=== PATIENT | female | born 1980 | race African-American/Black ===

== ENCOUNTER 2017-02-17 09:39 | Emergency (ER) | payer SELFPAY ==
--- NOTE | 2017-02-17 11:16 | ER Document Report ---
ED Neck/Back Problem - General Chief Complaint: Back Pain Stated Complaint: RIGHT ARM PAIN Time Seen by Provider: 02/17/17 10:12 Mode of Arrival: Ambulatory Information source: Patient Notes: 36-year-old female presents to ED for complaint of right arm pain. She states that 3 days ago the pain started in her right upper arm that it went to her elbow like there was a rubber band in her elbow. And then she had numbness and tingling in her arm. She also complains of low back pain but she states she has chronic low back pain and upper back pain. She also states that her left lateral leg has been hurting since last night. She is also complaining of a yeast rash under her breast with some yeasty smell and her vagina. She states she cannot go to her primary doctor because she does not have insurance and cannot afford an appointment. TRAVEL OUTSIDE OF THE [place] IN LAST 30 DAYS: No - HPI Patient complains to provider of: Pain, Upper back - Right arm and left leg, Lower back. No: Injury Onset: Other - Pain in right arm started 3 days ago pain in left leg started yesterday Onset: Chronic Timing: Still present Quality of pain: Achy, Burning, Throbbing Severity: Moderate Pain Level: 4 Recent injury: No Associated symptoms: Like prior neck/back pain, Numbness/tingling - Right hand, Radiation to arm, Radiation to leg, Lower back pain, Upper back pain. denies: Chills, Constipation, Fever, Incontinence, Motor loss, Sensory loss, Sweaty, Unable to urinate Exacerbated by: Nothing Relieved by: Nothing Similar symptoms previously: Yes Recently seen / treated by doctor: No - Related Data Allergies/Adverse Reactions: amoxicillin [Amoxicillin] Allergy (Verified 02/17/17 09:48) ivory soap Allergy (Severe, Uncoded 02/17/17 09:48) Past Medical History - General Information source: Patient - Social History Smoking Status: Never Smoker Chew tobacco use (# tins/day): No Frequency of alcohol use: None Drug Abuse: None Occupation: None Lives with: Family Family History: Reviewed & Not Pertinent Patient has suicidal ideation: No Patient has homicidal ideation: No - Past Medical History Cardiac Medical History: Reports: Hx Hypertension Pulmonary Medical History: Reports: Hx Asthma, Hx Bronchitis, Hx Pneumonia - hx EENT Medical History: Reports: None Neurological Medical History: Reports: None Endocrine Medical History: Reports: Hx Diabetes Mellitus Type 2 Renal/ Medical History: Reports: None Malignancy Medical History: Reports: None GI Medical History: Reports: Hx Gastroesophageal Reflux Disease Musculoskeltal Medical History: Reports Hx Arthritis, Reports Hx Musculoskeletal Deformity - Chronic back and neck pain, Reports Hx Musculoskeletal Trauma Skin Medical History: Reports None Psychiatric Medical History: Reports: Hx Anxiety Traumatic Medical History: Reports: None Infectious Medical History: Reports: None Past Surgical History: Reports: Hx Section - 2004 & 2009, Hx Genitourinary Surgery - D&C. Denies: Hx Hysterectomy - Immunizations Immunizations up to date: Yes Hx Diphtheria, Pertussis, Tetanus Vaccination: Yes Hx Pneumococcal Vaccination: 07/15/10 Review of Systems - Review of Systems Constitutional: No symptoms reported EENT: No symptoms reported Cardiovascular: No symptoms reported Respiratory: No symptoms reported Gastrointestinal: No symptoms reported Genitourinary: No symptoms reported Female Genitourinary: No symptoms reported Musculoskeletal: Back pain, Muscle pain, Other - Pain down left lower leg with no new injury and down right arm elbow and lower arm with no new injury patient has chronic back and neck pain. Skin: No symptoms reported Hematologic/Lymphatic: No symptoms reported Neurological/Psychological: No symptoms reported -: Yes All other systems reviewed and negative Physical Exam - Vital signs Vitals: Temp Pulse Resp BP Pulse Ox 98.7 F 90 18 148/83 H 96 02/17/17 09:45 02/17/17 09:45 02/17/17 09:45 02/17/17 09:45 02/17/17 09:45 Interpretation: Normal - General General appearance: Appears well, Alert - HEENT Head: Normocephalic, Atraumatic Eyes: Normal Pupils: PERRL - Respiratory Respiratory status: No respiratory distress Chest status: Nontender Breath sounds: Normal Chest palpation: Normal - Cardiovascular Rhythm: Regular Heart sounds: Normal auscultation Murmur: No - Abdominal Inspection: Normal Distension: No distension Bowel sounds: Normal Tenderness: Nontender Organomegaly: No organomegaly - Genitourinary External exam: Other - Vaginal type irritation to the labia - Back Back: Normal, Nontender - Extremities General upper extremity: Normal inspection, Nontender, Normal color, Normal ROM , Normal temperature General lower extremity: Normal inspection, Nontender, Normal color, Normal ROM , Normal temperature, Normal weight bearing. No: Clarissa's sign - Neurological Neuro grossly intact: Yes Cognition: Normal Orientation: AAOx4 Ant Coma Scale Eye Opening: Spontaneous Ant Coma Scale Verbal: Oriented Ant Coma Scale Motor: Obeys Commands Ant Coma Scale Total: 15 Speech: Normal Motor strength normal: LUE, RUE, LLE, RLE Sensory: Normal - Psychological Associated symptoms: Normal affect, Normal mood - Skin Skin Temperature: Warm Skin Moisture: Dry Skin Color: Normal Location of irregularity: Other - Erythema and irritation to the labia and under the breast Irregularity with: Tenderness Course - Re-evaluation Re-evalutation: 02/17/17 11:18 Patient instructed to follow-up primary doctor for her chronic pain to her back with radiation down the right arm and left leg. She was treated with nystatin powder for her yeasty type rash to under her breast and her perineum area. Patient was instructed to clean well with these areas rinsed well and pat dry before putting the powder on. Patient was also instructed to use some kind of cloth barrier between the layers of skin to reduce the irritation from skin touch and skin. Patient was given a sling for her right arm discomfort until she can follow-up with her primary doctor. - Vital Signs Vital signs: Temp Pulse Resp BP Pulse Ox 98.6 F 87 16 147/81 H 95 02/17/17 11:40 02/17/17 11:40 02/17/17 11:40 02/17/17 11:40 02/17/17 11:40 Discharge - Discharge Clinical Impression: Chronic upper back pain with radiculopat, Lower back pain radiation down left leg, Yeast infection under breast, Vaginal yeast infection Condition: Stable Disposition: HOME, SELF-CARE Instructions: Radiculopathy ([facility]), Topical Antifungal ([facility]) Additional Instructions: Chronic Back Pain Chronic back pain (pain persisting longer than three months) is a common problem. A medical evaluation can look for herniated disc, arthritis, osteoporosis, tumors, and infections. But at least half the time, there's no obvious treatable cause. Anxiety and depression tend to worsen back pain. Ibuprofen or other anti-inflammatory medicine can help. A heating pad, used for 15-20 minutes at a time, can ease pain. For this type of back pain, narcotic medicines should be avoided. Muscle relaxers are rarely helpful unless you're having spasms. Activity is important. Find an aerobic exercise program that your back can tolerate. Too much rest makes back pain worse. Specific back exercises are usually prescribed to strengthen the back and abdominal muscles. Often, a physical therapist can help. Avoid heavy lifting, working while bent over, or standing with both knees straight. Most back pain patients do better with a firm mattress. If new symptoms of a "herniated disc" (radiation of pain, numbness, or tingling down the back of the leg or weakness in the leg) occur, you should be re-examined. VAGINITIS: Your exam shows that you have vaginitis, a vaginal infection. The infection can be caused by a many different organisms, including trichomonas or Gardnerella. The usual symptoms are vaginal irritation and discharge. The treatment is usually antibiotics such as Flagyl. Laboratory tests can determine which germ is responsible. Use the medication as prescribed. Because this infection can be transmitted sexually, your sexual partner may need to be checked and treated also. If your physician has not discussed this with you, please check before resuming sexual relations. If a culture shows gonorrhea or chlamydia, the infection must be reported to the health department. Call the doctor if you develop pelvic pain, fever, or problems with urination, or if you don't improve as expected. VAGINAL YEAST INFECTION: You have evidence of a yeast infection -- called "sebastián." A vaginal yeast infection often causes itching and discharge. While not dangerous, it can be very unpleasant. A yeast infection often follows the use of powerful antibiotics. It is more likely to occur in diabetics. The treatment now is usually a single pill of Diflucan, but also an antifungal cream or suppository may be used for a few days. You do not need to avoid sexual intercourse. Recurrences are common. You can make a recurrence less likely by wearing cotton underwear and avoiding tight clothing. For mild recurrences, you can try [id number] creams or suppositories that are made specifically for yeast. If the symptoms do not resolve, you should follow up for re-examination. Sometimes treatment of the sexual partner is necessary if infections are recurrent. FLUCONAZOLE: Fluconazole (Diflucan) is an antifungal drug. It is useful for serious fungal infections, but is also excellent for oral or vaginal yeast infections. Diflucan interacts with some medicines. This is a concern if you are taking anticoagulants (such as Coumadin), phenytoin (Dilantin), cyclosporin, or oral hypoglycemics (such as tolbutamide, Orinase, glipizide, Glucotrol, glyburide, DiaBeta, Glynase, and Micronase). Be sure the doctor knows if you are taking one of these medicines. We don't know how Diflucan affects . If you are planning to become , discuss this with your doctor. Diflucan has few side effects. Minor side effects may include nausea, headache, or diarrhea. Call the doctor if you develop a skin rash, shortness of breath, or other new symptoms. FOLLOW-UP CARE: If you have been referred to a physician for follow-up care, call the physician s office for an appointment as you were instructed or within the next two days. If you experience worsening or a significant change in your symptoms, notify the physician immediately or return to the Emergency Department at any time for re-evaluation. Prescriptions: Nystatin [Nyata] 15 gm TP TID #30 powder Forms: Elevated Blood Pressure Referrals: ANDREA ORTEGA MD [Primary Care Provider] - Follow up as needed [facility] [Provider Group] - Follow up as needed
[2017-02-17] MEDS ORDERED: NYSTATIN TOPICAL POWDER 15 GM TP SCH ×2 (11:20→18:00)
[2017-02-17 11:55] VITALS: BP 147/81
[2017-02-17] MEDS ORDERED: NYSTATIN TOPICAL POWDER 15 GM TP ONE (12:00)
== END 2017-02-17 11:45 | disposition home or self-care (01) ==
LOC: ER 09:39
DX: B37.2 Candidiasis of skin and nail (principal); B37.3 Candidiasis of vulva and vagina; M54.5 Low back pain; M54.9 Dorsalgia, unspecified; M79.601 Pain in right arm; M54.6 Pain in thoracic spine; M54.14 Radiculopathy, thoracic region; M79.605 Pain in left leg; G89.29 Other chronic pain
CPT/HCPCS: 99283; J3490

== ENCOUNTER 2017-04-02 22:34 | Emergency (ER) | payer SELFPAY ==
[2017-04-02 23:05] VITALS: BP 155/103
[2017-04-03] MEDS ORDERED: DEXAMETHASONE SOD PHOS INJ 10 MG/1 ML VIAL IM ONE (00:56)
[2017-04-03] MEDS ORDERED: AZITHROMYCIN 250 MG TABLET PO ONE (00:56)
--- NOTE | 2017-04-03 01:02 | ER Document Report ---
HPI - HPI Patient complains to provider of: Sore throat, congestion, cough, neck pain Pain Level: 5 Context: Patient is a 36-year-old female comes emergency department for chief complaint of throat pain and pain in her neck, she states 1 week ago she started having congestion and cough, this mostly resolved but now her throat hurts in the front of her neck hurts as well. She also reports a lot of ear pain, worse on the right side. She denies fever, shortness of breath, headache. She takes no daily medications. She denies smoking. LMP within the past month. - REPRODUCTIVE Reproductive: REPORTS: : - DERM Skin Color: Normal Past Medical History - General Information source: Patient - Social History Smoking Status: Never Smoker Frequency of alcohol use: None Drug Abuse: None Lives with: Family Family History: Reviewed & Not Pertinent Patient has suicidal ideation: No Patient has homicidal ideation: No - Past Medical History Cardiac Medical History: Reports: Hx Hypertension Denies: Hx Coronary Artery Disease, Hx Heart Attack Pulmonary Medical History: Reports: Hx Asthma, Hx Bronchitis, Hx Pneumonia - hx Denies: Hx COPD Neurological Medical History: Denies: Hx Cerebrovascular Accident, Hx Seizures Endocrine Medical History: Reports: Hx Diabetes Mellitus Type 2 Renal/ Medical History: Denies: Hx Peritoneal Dialysis GI Medical History: Reports: Hx Gastroesophageal Reflux Disease Musculoskeltal Medical History: Reports Hx Arthritis, Reports Hx Musculoskeletal Deformity - Chronic back and neck pain, Reports Hx Musculoskeletal Trauma Psychiatric Medical History: Reports: Hx Anxiety Past Surgical History: Reports: Hx Section - 2004 & 2009, Hx Genitourinary Surgery - D&C. Denies: Hx Hysterectomy - Immunizations Immunizations up to date: Yes Hx Diphtheria, Pertussis, Tetanus Vaccination: Yes Hx Pneumococcal Vaccination: 07/15/10 Vertical Provider Document - CONSTITUTIONAL General Appearance: WD/WN, No Apparent Distress - INFECTION CONTROL TRAVEL OUTSIDE OF THE [place] IN LAST 30 DAYS: No - HEENT HEENT: negative: Normal ENT Exam - Right-sided otitis media with erythema and loss of landmarks, left your examination unremarkable, mild erythema of the throat, mild anterior cervical adenopathy bilaterally, complaints with palpation over frontal sinuses, nasal congestion noted. - NECK Neck: Lymphadenopathy-Left, Lymphadenopathy-Right - RESPIRATORY Respiratory: Breath Sounds Normal, No Respiratory Distress O2 Sat by Pulse Oximetry: 93 - CARDIOVASCULAR Cardiovascular: Regular Rate, Regular Rhythm - GI/ABDOMEN Gastrointestinal: Abdomen Soft, Abdomen Non-Tender - BACK Back: Normal Inspection - MUSCULOSKELETAL/EXTREMETIES Musculoskeletal/Extremeties: MAEW, FROM, Non-Tender - NEURO Level of Consciousness: Awake, Alert, Appropriate - DERM Integumentary: Warm, Dry, No Rash Course - Vital Signs Vital signs: Temp Pulse Resp BP Pulse Ox 97.6 F 90 18 155/103 H 93 04/02/17 23:03 04/02/17 23:03 04/02/17 23:03 04/02/17 23:03 04/02/17 23:03 Discharge - Discharge Clinical Impression: Anterior cervical adenopathy Upper respiratory infection Qualifiers: URI type: unspecified URI Qualified Code(s): J06.9 - Acute upper respiratory infection, unspecified Pharyngitis Qualifiers: Pharyngitis/tonsillitis etiology: unspecified etiology Qualified Code(s): J02.9 - Acute pharyngitis, unspecified Otitis media Qualifiers: Otitis media type: suppurative Chronicity: acute Laterality: right Recurrence: not specified as recurrent Spontaneous tympanic membrane rupture: without spontaneous rupture Qualified Code(s): H66.001 - Acute suppurative otitis media without spontaneous rupture of ear drum, right ear Condition: Stable Disposition: HOME, SELF-CARE Additional Instructions: Examination is consistent with initially viral upper respiratory infection and now an ear infection and throat pain. Take medications as prescribed, also take ibuprofen, Tylenol, Benadryl, or other [id number] medications if desired for additional symptom management. Follow-up with primary care. Return to the emergency department for any concerning or worsening symptoms including difficulty breathing, severe headache, swelling of the throat/mouth, or any other concerning symptoms. Prescriptions: Azithromycin [Zithromax 250 mg Tablet] 250 mg PO DAILY #4 tablet Fluticasone Propionate [Flonase Nasal [place] 50 Mcg/[place] 16 gm] 2 sprays NASL Q12 #1 inhaler Pseudoephedrine HCl [Sudafed 12-Hour] 120 mg PO Q12 #20 tablet.sa
== END 2017-04-03 01:22 | disposition home or self-care (01) ==
LOC: ER 22:34
DX: R59.9 Enlarged lymph nodes, unspecified (principal); J02.9 Acute pharyngitis, unspecified; J06.9 Acute upper respiratory infection, unspecified; H66.001 Acute suppurative otitis media without spontaneous rupture of ear drum, right ear; M54.2 Cervicalgia; I10 Essential (primary) hypertension; E11.9 Type 2 diabetes mellitus without complications; K21.9 Gastro-esophageal reflux disease without esophagitis
CPT/HCPCS: 99282; 96372; J1100

== ENCOUNTER 2017-08-07 02:43 | Emergency (ER) | payer SELFPAY ==
[2017-08-07] MEDS ORDERED: ACETAMINOPHEN 325 MG TABLET PO ONE (03:31)
[2017-08-07] MEDS ORDERED: LISINOPRIL 10 MG TABLET PO ONE (03:33)
--- NOTE | 2017-08-07 03:35 | ER Document Report ---
ED General - General Chief Complaint: Sore Throat Stated Complaint: SORE THROAT Time Seen by Provider: 08/07/17 03:28 Notes: Patient is a 36-year-old female that comes emergency department for several complaints. She states over the past 2 days she has felt generally worse, she has had a sore throat, congestion, cough, she also states that she feels like she cannot lie flat and she gets out of breath if she just walks across the room. She also has intermittent radiating pain down her legs but this is chronic reportedly. She has hypertension, type 2 diabetes with insulin, has not had the flu shot, denies smoking. She states she has been taking Aleve for her symptoms. She states she is out of her blood pressure medications, she states she takes lisinopril 10 mg. TRAVEL OUTSIDE OF THE [place] IN LAST 30 DAYS: No - Related Data Allergies/Adverse Reactions: amoxicillin [Amoxicillin] Allergy (Verified 02/17/17 09:48) ivory soap Allergy (Severe, Uncoded 02/17/17 09:48) Past Medical History - General Information source: Patient - Social History Smoking Status: Never Smoker Frequency of alcohol use: None Drug Abuse: None Lives with: Family Family History: Reviewed & Not Pertinent - Past Medical History Cardiac Medical History: Reports: Hx Hypertension Denies: Hx Coronary Artery Disease, Hx Heart Attack Pulmonary Medical History: Reports: Hx Asthma, Hx Bronchitis, Hx Pneumonia - hx Denies: Hx COPD Neurological Medical History: Denies: Hx Cerebrovascular Accident, Hx Seizures Endocrine Medical History: Reports: Hx Diabetes Mellitus Type 2 Renal/ Medical History: Denies: Hx Peritoneal Dialysis GI Medical History: Reports: Hx Gastroesophageal Reflux Disease Musculoskeltal Medical History: Reports Hx Arthritis, Reports Hx Musculoskeletal Deformity - Chronic back and neck pain, Reports Hx Musculoskeletal Trauma Psychiatric Medical History: Reports: Hx Anxiety Past Surgical History: Reports: Hx Section - 2005 & 2009, Hx Genitourinary Surgery - D&C. Denies: Hx Hysterectomy - Immunizations Immunizations up to date: Yes Hx Diphtheria, Pertussis, Tetanus Vaccination: Yes Hx Pneumococcal Vaccination: 07/15/10 Review of Systems - Review of Systems Constitutional: See HPI EENT: See HPI Cardiovascular: See HPI Respiratory: See HPI Gastrointestinal: No symptoms reported Genitourinary: No symptoms reported Female Genitourinary: No symptoms reported Musculoskeletal: No symptoms reported Skin: No symptoms reported Hematologic/Lymphatic: No symptoms reported Neurological/Psychological: No symptoms reported Physical Exam - Vital signs Vitals: Temp Pulse Resp BP Pulse Ox 100.1 F 107 H 20 214/93 H 96 08/07/17 02:50 08/07/17 02:50 08/07/17 02:50 08/07/17 02:50 08/07/17 02:50 Interpretation: Normal - General General appearance: Other - Patient mildly ill-appearing with some congestion but she does not appear to be in distress - HEENT Head: Normocephalic Eyes: Normal Conjunctiva: Normal Extraocular movements intact: Yes Eyelashes: Normal Pupils: PERRL External canal: Normal Tympanic membrane: Normal Sinus: Normal Nasal: Other - Mild congestion Mouth/Lips: Normal Mucous membranes: Normal Pharynx: Erythema - Mild. No: Exudate, Peritonsillar abscess, Uvular edema, Potential airway comprom. Neck: Normal. No: Anterior cervical chain, Posterior cervical chain, Meningismus - Respiratory Respiratory status: No respiratory distress. No: Respiratory distress, Labored , Tachypnea Chest status: Nontender Breath sounds: Nonproductive cough - Occasional nonproductive cough. No: Decreased air movement, Rhonchi, Stridor, Wheezing Chest palpation: Normal - Cardiovascular Rhythm: Regular, Tachycardia Heart sounds: Normal auscultation, S1 appreciated, S2 appreciated Murmur: No - Abdominal Inspection: Normal Distension: No distension Bowel sounds: Normal Tenderness: Nontender Organomegaly: No organomegaly - Back Back: Normal, Nontender - Extremities General upper extremity: Normal inspection, Nontender, Normal color, Normal ROM , Normal temperature General lower extremity: Normal inspection, Nontender, Normal color, Normal ROM , Normal temperature, Normal weight bearing. No: Clarissa's sign - Neurological Neuro grossly intact: Yes Cognition: Normal Orientation: AAOx4 Ant Coma Scale Eye Opening: Spontaneous Ant Coma Scale Verbal: Oriented [place] Coma Scale Motor: Obeys Commands [place] Coma Scale Total: 15 Speech: Normal Motor strength normal: LUE, RUE, LLE, RLE Sensory: Normal - Psychological Associated symptoms: Normal affect, Normal mood - Skin Skin Temperature: Warm Skin Moisture: Dry Skin Color: Normal Course - Re-evaluation Re-evalutation: CBC with leukocytosis of 18,000 with elevation of neutrophils but no bandemia. Temperature 100.1, mild tachycardia, elevated blood pressure. After treatment with Tylenol temperature resolved, tachycardia resolved. Patient was given her lisinopril that she is supposed to take at home and her blood pressure is actually decreased significantly. Patient with no tachypnea or distress on exam , no hypoxia. Chest x-ray unremarkable other than cardiomegaly, EKG showing inverted T waves laterally compared to prior. No ST segment abnormalities. Patient denying chest pain but states she gets short of breath when she walks a short distance. BNP and troponin were added, symptoms have been going on for 2 days. Troponin is negative, BNP is not significantly elevated, chest x-ray does not show vascular congestion. Patient ambulated with pulse oxygen saturation and heart rate measurement, no significant decrease in pulse oxygen saturation, no significant increase in tachycardia. Strep test is negative, influenza A is positive. Discussed with patient, patient declined Tamiflu after this was offered, states she has read about this and does not want it. Patient is past 48 hours at this point. Because of elevated white blood cell count with elevation of neutrophils patient will be covered for potential underlying pneumonia, discussed this, patient states she will not be able to afford anything other than azithromycin. She also requests blood pressure medication refill and states that in a week or 2 she will run out of insulin and cannot afford additional insulin. She states she applied for insurance and was not approved. Patient will have a case resolution specialist consult placed for this. Discussed with Dr. Elizondo. At this time there is not appear to be any evidence of ACS, patient is not hypoxic and ambulates without any difficulty, and agreement with plan and strict return precautions. I discussed this again with patient. Patient and family member state understanding and agreement. - Vital Signs Vital signs: Temp Pulse Resp BP Pulse Ox 99.4 F 94 17 179/98 H 95 08/07/17 05:30 08/07/17 04:52 08/07/17 05:30 08/07/17 05:30 08/07/17 05:30 - Laboratory Result Diagrams: 08/07/17 04:04 08/07/17 04:04 Laboratory results interpreted by me: 08/07/17 08/07/17 04:04 04:04 WBC 18.2 H RDW 15.2 H Seg Neutrophils % 82.2 H Lymphocytes % 8.0 L Absolute Neutrophils 15.0 H Absolute Monocytes 1.6 H Sodium 135.2 L Glucose 223 H AST 11 L Alkaline Phosphatase 133 H Discharge - Discharge Clinical Impression: Influenza A, Cough, Shortness of breath, Sore throat Fever Qualifiers: Fever type: unspecified Qualified Code(s): R50.9 - Fever, unspecified Condition: Stable Disposition: HOME, SELF-CARE Additional Instructions: Your workup shows influenza A. You are also being covered for potential underlying bacterial pneumonia. Take Tylenol for fever, drink plenty fluids, and rest. Take blood pressure medication prescribed, we have a case resolution specialist consult placed and they will be contacting you to help figure out your medications and primary care. Return if you worsen in anyway including difficulty breathing, vomiting, passing out, or any other concerning or worsening symptoms. Prescriptions: Azithromycin [Zithromax 250 mg Tablet] 250 mg PO ASDIR PRN #4 tablet PRN Reason: Lisinopril 10 mg PO DAILY #30 tablet Referrals: ANDREA ORTEGA MD [Primary Care Provider] - Follow up as needed
[2017-08-07 04:14] LABS: ABSOLUTE BASOPHILS # (AUTO) 0.2 10^3/uL (0.0-0.2); ABSOLUTE EOSINOPHILS # (AUTO) 0.1 10^3/uL (0.0-0.6); ABSOLUTE LYMPHOCYTES (AUTO) 1.5 10^3/uL (0.5-4.7); ABSOLUTE MONOCYTES (AUTO) 1.6 10^3/uL (0.1-1.4); BASOPHILS % (AUTO) 0.9 % (0-2); EOSINOPHILS % (AUTO) 0.3 % (0-6); HEMATOCRIT 38.9 % (36.0-47.0); HEMOGLOBIN 12.9 g/dL (12.0-15.5); MEAN CORPUSCULAR HEMOGLOBIN 29.3 pg (27.0-33.4); MEAN CORPUSCULAR HGB CONC 33.2 g/dL (32.0-36.0); MEAN CORPUSCULAR VOLUME 88 fl (80-97); MONOCYTES % (AUTO) 8.6 % (3-13); PLATELET COUNT 339 10^3/uL (150-450); RED BLOOD COUNT 4.41 10^6/uL (3.72-5.28); RED CELL DISTRIBUTION WIDTH 15.2 % (11.5-14.0); SEGMENTED NEUTROPHILS % (AUTO) 82.2 % (42-78); TOTAL CELLS COUNTED % (AUTO) 100 %; WHITE BLOOD COUNT 18.2 10^3/uL (4.0-10.5)
[2017-08-07 04:22] LABS: A TYPE INFLUENZA AG POSITIVE (NEGATIVE); B INFLUENZA AG NEGATIVE (NEGATIVE)
[2017-08-07 04:27] LABS: ALANINE AMINOTRANSFERASE 27 U/L (9-52); ALBUMIN 3.5 g/dL (3.5-5.0); ALKALINE PHOSPHATASE 133 U/L (38-126); ANION GAP 9 (5-19); ASPARTATE AMINO TRANSFERASE 11 U/L (14-36); BILIRUBIN,DIRECT 0.3 mg/dL (0.0-0.4); BILIRUBIN,TOTAL 0.3 mg/dL (0.2-1.3); BLOOD UREA NITROGEN 7 mg/dL (7-20); CALCIUM 8.9 mg/dL (8.4-10.2); CARBON DIOXIDE 24 mmol/L (22-30); CHLORIDE 102 mmol/L (98-107); GLUCOSE 223 mg/dL (75-110); POTASSIUM 4.1 mmol/L (3.6-5.0); SODIUM 135.2 mmol/L (137-145); TOTAL PROTEIN 6.9 g/dL (6.3-8.2)
[2017-08-07 04:39] LABS: NT PRO BNP 112 pg/mL (<125)
[2017-08-07 04:42] LABS: TROPONIN I < 0.012 ng/mL
--- NOTE | 2017-08-07 05:00 | RADIOLOGY REPORT (SQ) ---
EXAM DESCRIPTION: CHEST PA/LAT CLINICAL HISTORY: dyspnea on exertion COMPARISON: 06/24/2015 FINDINGS: Frontal and lateral views of the chest. Cardia megaly. No consolidation, pneumothorax, or pleural effusion. No displaced rib fractures identified. Upper abdominal soft tissues are unremarkable. IMPRESSION: 1. No acute pulmonary process identified. Cardiomegaly.
[2017-08-07] MEDS ORDERED: AZITHROMYCIN 250 MG TABLET PO ONE (05:50)
[2017-08-07 06:14] VITALS: BP 179/98
--- NOTE | 2017-08-07 08:58 | EKG REPORT ---
SEVERITY:- ABNORMAL ECG - SINUS TACHYCARDIA ABNORMAL T, CONSIDER ISCHEMIA, LATERAL LEADS NEW, COMPARED TO 01/17/16 EKG, NEED CLINICAL CORRELATION : Confirmed by: Pablo Dumas MD 07-Aug-2017 08:57:55
== END 2017-08-07 06:29 | disposition home or self-care (01) ==
LOC: ER 02:43
DX: J10.1 Influenza due to other identified influenza virus with other respiratory manifestations (principal); J45.909 Unspecified asthma, uncomplicated; R05 Cough; R06.02 Shortness of breath; R00.0 Tachycardia, unspecified; I11.9 Hypertensive heart disease without heart failure; T46.4X6A Underdosing of angiotensin-converting-enzyme inhibitors, initial encounter; Z91.128 Patient's intentional underdosing of medication regimen for other reason; Z91.14 Patient's other noncompliance with medication regimen; E11.9 Type 2 diabetes mellitus without complications; Z79.4 Long term (current) use of insulin; Z88.0 Allergy status to penicillin; Z88.3 Allergy status to other anti-infective agents
CPT/HCPCS: 36415; 71046; 80053; 83880; 84484; 85025; 87070; 87804; 87880; 93005; 93010; 99284

== ENCOUNTER → 2017-09-09 | Outpatient (CLI) | payer OTHER ==
[2017-09-09 10:51] LABS: ABSOLUTE BASOPHILS # (AUTO) 0.1 10^3/uL (0.0-0.2); ABSOLUTE EOSINOPHILS # (AUTO) 0.1 10^3/uL (0.0-0.6); ABSOLUTE LYMPHOCYTES (AUTO) 2.8 10^3/uL (0.5-4.7); ABSOLUTE MONOCYTES (AUTO) 0.7 10^3/uL (0.1-1.4); BASOPHILS % (AUTO) 1.1 % (0-2); EOSINOPHILS % (AUTO) 0.5 % (0-6); HEMATOCRIT 41.6 % (36.0-47.0); HEMOGLOBIN 13.7 g/dL (12.0-15.5); LYMPHOCYTES % (AUTO) 20.3 % (13-45); MEAN CORPUSCULAR HEMOGLOBIN 28.8 pg (27.0-33.4); MEAN CORPUSCULAR HGB CONC 32.8 g/dL (32.0-36.0); MEAN CORPUSCULAR VOLUME 88 fl (80-97); MONOCYTES % (AUTO) 5.2 % (3-13); PLATELET COUNT 391 10^3/uL (150-450); RED BLOOD COUNT 4.74 10^6/uL (3.72-5.28); RED CELL DISTRIBUTION WIDTH 15.7 % (11.5-14.0); SEGMENTED NEUTROPHILS % (AUTO) 72.9 % (42-78); TOTAL CELLS COUNTED % (AUTO) 100 %; WHITE BLOOD COUNT 13.7 10^3/uL (4.0-10.5)
[2017-09-09 11:25] LABS: AMYLASE 44 U/L (30-110); ANION GAP 8 (5-19); BLOOD UREA NITROGEN 11 mg/dL (7-20); CALCIUM 9.4 mg/dL (8.4-10.2); CARBON DIOXIDE 30 mmol/L (22-30); CHLORIDE 99 mmol/L (98-107); GLUCOSE 149 mg/dL (75-110); LIPASE 98.9 U/L (23-300); POTASSIUM 4.1 mmol/L (3.6-5.0); SODIUM 137.2 mmol/L (137-145)
== END ==
LOC: CCC 10:14
DX: R10.9 Unspecified abdominal pain (principal)
CPT/HCPCS: 36415; 80048; 82150; 83690; 85025

== ENCOUNTER → 2017-09-09 | Outpatient (CLI) | payer OTHER ==
--- NOTE | 2017-09-09 18:30 | RADIOLOGY REPORT (SQ) ---
EXAM DESCRIPTION: CT ABD/PELVIS WITH IV ORAL COMPLETED DATE/TIME: 09/09/2017 6:12 pm REASON FOR STUDY: ABD PAIN (R10.9) R10.9 UNSPECIFIED ABDOMINAL PAIN COMPARISON: 06/24/2015 TECHNIQUE: CT scan of the abdomen and pelvis performed using helical scanning technique with dynamic intravenous contrast injection. Oral contrast. Images reviewed with lung, soft tissue, and bone win dows. Reconstructed coronal and sagittal MPR images reviewed. Delayed images for evaluation of the ur inary system also acquired. All images stored on PACS. All CT scanners at this facility use dose modulation, iterative reconstruction, and/or weight based d osing when appropriate to reduce radiation dose to as low as reasonably achievable (ALARA). [facility]: Dose Right [facility]: CareDose [facility]: Dose Right [facility]: Teradose 4D [facility]: WEbook CONTRAST TYPE AND DOSE: contrast/concentration: Isovue 370.00 mg/ml; Total Contrast Delivered: 100.0 ml; Total Saline Delivered: 45.0 ml RENAL FUNCTION: Creatinine 0.6 RADIATION DOSE: CT Rad equipment meets quality standard of care and radiation dose reduction techniq ues were employed. CTDIvol: 21.1 - 30.0 mGy. DLP: 2624 mGy-cm.. LIMITATIONS: None. FINDINGS: LOWER CHEST: No significant findings. No nodules or infiltrates. LIVER: Normal size. No masses. No dilated ducts. SPLEEN: Normal size. No focal lesions. PANCREAS: No masses. No significant calcifications. No adjacent inflammation or peripancreatic fluid collections. Pancreatic duct not dilated. GALLBLADDER: No identified stones by CT criteria. No inflammatory changes to suggest cholecystitis. ADRENAL GLANDS: No significant masses or asymmetry. RIGHT KIDNEY AND URETER: No solid masses. No significant calcifications. No hydronephrosis or hyd roureter. LEFT KIDNEY AND URETER: No solid masses. No significant calcifications. No hydronephrosis or hydr oureter. AORTA AND VESSELS: No aneurysm. No dissection. Renal arteries, SMA, celiac without stenosis. RETROPERITONEUM: No retroperitoneal adenopathy, hemorrhage or masses. BOWEL AND PERITONEAL CAVITY: No masses or inflammatory changes. No free fluid or peritoneal masses. APPENDIX: Normal. PELVIS: No mass. No free fluid. Normal bladder. ABDOMINAL WALL: There is a 15 mm wide ventral hernia contains only fat. BONES: No significant or acute findings. OTHER: No other significant finding. IMPRESSION: Small ventral hernia that appears to contain omental fat. No acute abnormality is seen in the abdomen pelvis. TECHNICAL DOCUMENTATION: JOB ID: [id number] Quality ID # [id number]: Final reports with documentation of one or more dose reduction techniques (e.g., Au tomated exposure control, adjustment of the mA and/or kV according to patient size, use of iterative reconstruction technique) 2010 [employer]- All Rights Reserved Reading location - IP/workstation name: [email or web address]
== END ==
LOC: RAD 12:32
DX: R10.9 Unspecified abdominal pain (principal); K43.9 Ventral hernia without obstruction or gangrene
CPT/HCPCS: 74177; 82565

== ENCOUNTER → 2018-01-17 | Outpatient (CLI) | payer OTHER ==
[2018-01-17 11:31] LABS: ABSOLUTE BASOPHILS # (AUTO) 0.1 10^3/uL (0.0-0.2); ABSOLUTE EOSINOPHILS # (AUTO) 0.1 10^3/uL (0.0-0.6); ABSOLUTE LYMPHOCYTES (AUTO) 2.3 10^3/uL (0.5-4.7); ABSOLUTE MONOCYTES (AUTO) 0.7 10^3/uL (0.1-1.4); ABSOLUTE NEUT (AUTO) 7.6 10^3/uL (1.7-8.2); BASOPHILS % (AUTO) 0.5 % (0-2); EOSINOPHILS % (AUTO) 0.8 % (0-6); HEMATOCRIT 39.6 % (36.0-47.0); HEMOGLOBIN 13.2 g/dL (12.0-15.5); LYMPHOCYTES % (AUTO) 21.6 % (13-45); MEAN CORPUSCULAR HEMOGLOBIN 29.6 pg (27.0-33.4); MEAN CORPUSCULAR HGB CONC 33.4 g/dL (32.0-36.0); MEAN CORPUSCULAR VOLUME 89 fl (80-97); MONOCYTES % (AUTO) 6.3 % (3-13); PLATELET COUNT 381 10^3/uL (150-450); RED BLOOD COUNT 4.47 10^6/uL (3.72-5.28); RED CELL DISTRIBUTION WIDTH 14.7 % (11.5-14.0); SEGMENTED NEUTROPHILS % (AUTO) 70.8 % (42-78); TOTAL CELLS COUNTED % (AUTO) 100 %; WHITE BLOOD COUNT 10.8 10^3/uL (4.0-10.5)
[2018-01-17 12:19] LABS: ALANINE AMINOTRANSFERASE 28 U/L (9-52); ALBUMIN 3.7 g/dL (3.5-5.0); ALKALINE PHOSPHATASE 104 U/L (38-126); ANION GAP 12 (5-19); ASPARTATE AMINO TRANSFERASE 14 U/L (14-36); BILIRUBIN,DIRECT 0.3 mg/dL (0.0-0.4); BILIRUBIN,TOTAL 0.4 mg/dL (0.2-1.3); BLOOD UREA NITROGEN 9 mg/dL (7-20); CALCIUM 9.2 mg/dL (8.4-10.2); CARBON DIOXIDE 27 mmol/L (22-30); CHLORIDE 103 mmol/L (98-107); CHOLESTEROL 160.01 mg/dL (0-200); GLUCOSE 145 mg/dL (75-110); SODIUM 141.7 mmol/L (137-145); TOTAL PROTEIN 7.4 g/dL (6.3-8.2); TRIGLYCERIDES 73 mg/dL (<150)
[2018-01-17 12:30] LABS: DIRECT LDL 82 mg/dL (<100)
== END ==
LOC: CCC 10:27
DX: Z00.00 Encounter for general adult medical examination without abnormal findings (principal)
CPT/HCPCS: 36415; 80053; 80061; 83036; 84443; 85025

== ENCOUNTER 2018-06-08 17:47 | Emergency (ER) | payer SELFPAY ==
--- NOTE | 2018-06-08 19:06 | ER Document Report ---
ED General - General Mode of Arrival: Ambulatory Information source: Patient <MARISEL BLANCO - Last Filed: 06/08/18 21:18> - General TRAVEL OUTSIDE OF THE [place] IN LAST 30 DAYS: No <ROLA EDGAR - Last Filed: 06/08/18 21:19> - General Chief Complaint: Hip Pain Stated Complaint: HIP PAIN Time Seen by Provider: 06/08/18 18:50 Notes: 37-year-old female who presents to the emergency department today with complaints of low back and right hip pain. Patient states that she feels like there is numbness over the lateral thighs bilaterally. Patient states she also had a fall that occurred but the pain was present prior to this. Patient complains of toe numbness with this but attributes it to her diabetes. Patient denies any incontinence, saddle anesthesia, shortness of breath, and chest pain. (MARISEL BLANCO) Fall was from a standing position, after the pain had started several days ago, landed on her buttocks, no increase in her pain after this, no change in neurologic symptoms after this. Patient has had pain similar to this in the past several years ago, states it is a little bit worse than it was before. Previously diagnosed with sciatica in the past. (ROLA EDGAR) - Related Data Allergies/Adverse Reactions: amoxicillin [Amoxicillin] Allergy (Verified 06/08/18 17:50) ivory soap Allergy (Severe, Uncoded 06/08/18 17:50) Past Medical History - General Information source: Patient - Social History Smoking Status: Never Smoker Chew tobacco use (# tins/day): No Frequency of alcohol use: None Drug Abuse: None Family History: Reviewed & Not Pertinent <MARISEL BLANCO - Last Filed: 06/08/18 21:18> - Social History Smoking Status: Never Smoker Chew tobacco use (# tins/day): No Frequency of alcohol use: None Drug Abuse: None Family History: Reviewed & Not Pertinent Patient has suicidal ideation: No Patient has homicidal ideation: No - Past Medical History Cardiac Medical History: Reports: Hx Hypertension Denies: Hx Coronary Artery Disease, Hx Heart Attack Pulmonary Medical History: Reports: Hx Asthma, Hx Bronchitis, Hx Pneumonia - hx Denies: Hx COPD Neurological Medical History: Denies: Hx Cerebrovascular Accident, Hx Seizures Endocrine Medical History: Reports: Hx Diabetes Mellitus Type 2 Renal/ Medical History: Denies: Hx Peritoneal Dialysis GI Medical History: Reports: Hx Gastroesophageal Reflux Disease Musculoskeletal Medical History: Reports Hx Arthritis, Reports Hx Musculoskeletal Deformity - Chronic back and neck pain, Reports Hx Musculoskeletal Trauma Psychiatric Medical History: Reports: Hx Anxiety Past Surgical History: Reports: Hx Section - 2004 & 2009, Hx Genitourinary Surgery - D&C. Denies: Hx Hysterectomy - Immunizations Immunizations up to date: Yes Hx Diphtheria, Pertussis, Tetanus Vaccination: Yes Hx Pneumococcal Vaccination: 07/15/10 <ROLA EDGAR - Last Filed: 06/08/18 21:19> Review of Systems - Review of Systems Constitutional: No symptoms reported EENT: No symptoms reported Cardiovascular: denies: Chest pain Respiratory: denies: Short of breath Gastrointestinal: No symptoms reported Genitourinary: No symptoms reported Female Genitourinary: No symptoms reported Musculoskeletal: See HPI, Back pain, Joint pain - right hip Skin: No symptoms reported Hematologic/Lymphatic: No symptoms reported Neurological/Psychological: No symptoms reported -: Yes All other systems reviewed and negative <MARISEL BLANCO - Last Filed: 06/08/18 21:18> Physical Exam <MARISEL BLANCO - Last Filed: 06/08/18 21:18> <ROLA EDGAR - Last Filed: 06/08/18 21:19> - Vital signs Vitals: Temp Pulse Resp BP Pulse Ox 98.8 F 94 19 145/70 H 97 06/08/18 18:01 06/08/18 18:01 06/08/18 18:01 06/08/18 18:01 06/08/18 18:01 - Notes Notes: PHYSICAL EXAM GENERAL: Alert, interacts well. No acute distress. Obese. HEAD: Normocephalic, atraumatic. EYES: Pupils equal, round, and reactive to light. Extraocular movements intact. ENT: Oral mucosa moist, tongue midline. NECK: Full range of motion. Supple. Trachea midline. LUNGS: Clear to auscultation bilaterally, no wheezes, rales, or rhonchi. No respiratory distress. HEART: Regular rate and rhythm. No murmurs, gallops, or rubs. ABDOMEN: Soft, non-tender. Non-distended. Bowel sounds present in all 4 quadrants. No guarding, rigidity, or rebound. BACK: Lumbosacral tenderness with palpation. Paraspinal musculature tenderness to palpation in same area. EXTREMITIES: Moves all 4 extremities spontaneously. 2+ pitting edema left lower extremity, 1+ pitting edema of the right lower extremity. Great toe raising str ength 5/5 bilaterally. NEUROLOGICAL: Alert and oriented x3. Normal speech. PSYCH: Normal affect, normal mood. SKIN: Warm, dry, normal turgor. No rashes or lesions noted. (MARISEL BLANCO) Sensation intact, no saddle anesthesia. (ROLA EDGAR) Course <ROLA EDGAR - Last Filed: 06/08/18 21:19> - Re-evaluation Re-evalutation: 06/08/18 19:03 No evidence of cauda equina syndrome, there is bilateral sciatica, patient offered Robaxin for muscle spasm, also requests Voltaren gel. Patient will be discharged with both of these. No indication for emergent imaging at this time, this is also nontraumatic back pain so there is no indication for x-rays of her hips or back. Patient will be discharged home. Recommended to do stretches, follow-up with a primary care physician for possible physical therapy and MRI in 6 weeks if no improvement in symptoms before then. (ROLA EDGAR) - Vital Signs Vital signs: Temp Pulse Resp BP Pulse Ox 99.0 F 92 18 175/80 H 99 06/08/18 19:17 06/08/18 19:17 06/08/18 19:17 06/08/18 19:17 06/08/18 19:17 Discharge <MARISEL BLANCO - Last Filed: 06/08/18 21:18> <ROLA EDGAR - Last Filed: 06/08/18 21:19> - Discharge Clinical Impression: Low back pain due to bilateral sciatica Condition: Stable Disposition: HOME, SELF-CARE Additional Instructions: Low Back Pain Three out of every four people will have an episode of disabling back pain during their lifetime. Most commonly the pain is due to straining of the muscles and ligaments in the low back. Usual treatment includes: (1) Rest on a firm surface. Avoid lying on your stomach. (2) Ice pack the painful area. After a few days, gentle heat may be used intermittently to relax the area, or ice packs can be continued. (3) Medication may be needed -- muscle relaxers and antiinflammatory medicines are commonly used. (4) As the back improves, exercises are prescribed to strengthen the back and abdominal muscles. Your doctor will advise you on the proper care for your back at each stage in your recovery. You may be better in a few days -- or healing may take several weeks. If you develop increasing numbness, worsening pain, loss of control of your bowels or your bladder or weakness in your feet or legs, you should be re- examined. Further testing may be necessary. Prescriptions: Diclofenac Sodium [Voltaren] 1 gm TP BID PRN #1 gel..gm. PRN Reason: For Back Pain Methocarbamol [Robaxin 750 mg Tablet] 750 mg PO ASDIR PRN #40 tablet PRN Reason: Referrals: [facility] [Primary Care Provider] - Follow up as needed Scribe Attestation: 06/08/18 21:19 I personally performed the services described in the documentation, reviewed and edited the documentation which was dictated to the scribe in my presence, and it accurately records my words and actions. (ROLA EDGAR) Scribe Documentation - Scribe Written by Stephania:: Stephania Dacosta, 06/08/2018 [id number] acting as scribe for :: Shanice <MARISEL BLANCO - Last Filed: 06/08/18 21:18>
[2018-06-08 19:18] VITALS: BP 175/80
[2018-06-08] MEDS ORDERED: METHOCARBAMOL 750 MG TABLET PO ONE (19:28)
== END 2018-06-08 19:33 | disposition home or self-care (01) ==
LOC: ER 17:47
DX: M54.42 Lumbago with sciatica, left side (principal); M54.41 Lumbago with sciatica, right side; M25.551 Pain in right hip; R20.0 Anesthesia of skin; I10 Essential (primary) hypertension; E11.9 Type 2 diabetes mellitus without complications
CPT/HCPCS: 99283; J3490

== ENCOUNTER → 2018-07-14 | Outpatient (CLI) | payer OTHER ==
[2018-07-14 10:49] LABS: ALANINE AMINOTRANSFERASE 20 U/L (9-52); ALBUMIN 3.7 g/dL (3.5-5.0); ALKALINE PHOSPHATASE 85 U/L (38-126); ANION GAP 9 (5-19); ASPARTATE AMINO TRANSFERASE 10 U/L (14-36); BILIRUBIN,DIRECT 0.2 mg/dL (0.0-0.4); BILIRUBIN,TOTAL 0.3 mg/dL (0.2-1.3); BLOOD UREA NITROGEN 9 mg/dL (7-20); CALCIUM 9.1 mg/dL (8.4-10.2); CARBON DIOXIDE 29 mmol/L (22-30); CHLORIDE 101 mmol/L (98-107); GLUCOSE 116 mg/dL (75-110); POTASSIUM 4.3 mmol/L (3.6-5.0); SODIUM 138.6 mmol/L (137-145); TOTAL PROTEIN 6.9 g/dL (6.3-8.2)
== END ==
LOC: CCC 09:21
DX: E11.8 Type 2 diabetes mellitus with unspecified complications (principal)
CPT/HCPCS: 36415; 80053; 83036

== ENCOUNTER 2019-03-13 17:13 | Emergency (ER) | payer OTHER ==
--- NOTE | 2019-03-13 18:41 | ER Document Report ---
ED Medical Screen (RME) - General Chief Complaint: Wrist Pain Stated Complaint: RIGHT HAND AND WRIST INJURY/PAIN Time Seen by Provider: 03/13/19 18:37 Primary Care Provider: [facility] [Primary Care Provider] - Follow up as needed TRAVEL OUTSIDE OF THE [place] IN LAST 30 DAYS: No - HPI Notes: 03/13/19 18:40 Patient 38-year-old female history of type 2 diabetes and hypertension who presents complaining of right wrist pain status post injury days ago when she had a wrist off of a carousel horse. Pain will occasionally radiate to the hand. No fever. I have treated and performed a rapid initial assessment of this patient. A comprehensive ED assessment and evaluation of the patient, analysis of test results and completion of medical decision making process will be conducted by additional ED providers. PHYSICAL EXAMINATION: GENERAL: Well-appearing, well-nourished and in no acute distress. A&Ox4. Answers questions appropriately. Rt wrist: + tenderness ulnar wrist. no ecchymosis or erythema noted. N/V intact distal. - Related Data Allergies/Adverse Reactions: amoxicillin [Amoxicillin] Allergy (Verified 03/13/19 18:24) ivory soap Allergy (Severe, Uncoded 03/13/19 18:24) Past Medical History - Social History Chew tobacco use (# tins/day): No Frequency of alcohol use: None Drug Abuse: None - Past Medical History Cardiac Medical History: Reports: Hx Hypertension Denies: Hx Coronary Artery Disease, Hx Heart Attack Pulmonary Medical History: Reports: Hx Asthma, Hx Bronchitis, Hx Pneumonia - hx Denies: Hx COPD Neurological Medical History: Denies: Hx Cerebrovascular Accident, Hx Seizures Endocrine Medical History: Reports: Hx Diabetes Mellitus Type 2 Renal/ Medical History: Denies: Hx Peritoneal Dialysis GI Medical History: Reports: Hx Gastroesophageal Reflux Disease Musculoskeltal Medical History: Reports Hx Arthritis, Reports Hx Musculoskeletal Deformity - Chronic back and neck pain, Reports Hx Musculoskeletal Trauma Psychiatric Medical History: Reports: Hx Anxiety Past Surgical History: Reports: Hx Section - 2004 & 2009, Hx Genitourinary Surgery - D&C. Denies: Hx Hysterectomy - Immunizations Immunizations up to date: Yes Hx Diphtheria, Pertussis, Tetanus Vaccination: Yes Physical Exam - Vital signs Vitals: Temp Pulse Resp BP Pulse Ox 98.2 F 93 16 155/83 H 93 03/13/19 18:20 03/13/19 18:20 03/13/19 18:20 03/13/19 18:20 03/13/19 18:20 Course - Vital Signs Vital signs: Temp Pulse Resp BP Pulse Ox 98.2 F 93 16 155/83 H 93 03/13/19 18:20 03/13/19 18:20 03/13/19 18:20 03/13/19 18:20 03/13/19 18:20 Doctor's Discharge - Discharge Referrals: [facility] [Primary Care Provider] - Follow up as needed
--- NOTE | 2019-03-13 19:08 | RADIOLOGY REPORT (SQ) ---
EXAM DESCRIPTION: WRIST RIGHT 3 VIEWS COMPLETED DATE/TIME: 03/13/2019 6:55 pm REASON FOR STUDY: pain s/p injury COMPARISON: None. NUMBER OF VIEWS: Three views. TECHNIQUE: AP, lateral, and oblique radiographic images acquired of the right wrist. LIMITATIONS: None. FINDINGS: MINERALIZATION: Normal. BONES: No acute fracture or dislocation. No worrisome bone lesions. Normal alignment. SOFT TISSUES: No soft tissue swelling. No foreign body. OTHER: No other significant finding. IMPRESSION: NEGATIVE STUDY OF THE RIGHT WRIST. NO RADIOGRAPHIC EVIDENCE OF ACUTE INJURY. TECHNICAL DOCUMENTATION: JOB ID: [id number] [employer]- All Rights Reserved Reading location - IP/workstation name: [email or web address]
[2019-03-13] MEDS ORDERED: HYDROCODONE/ACETAMINOPHEN 5-325 MG (6 TAB/ER DISP) PO PRN (20:25)
--- NOTE | 2019-03-13 20:29 | ER Document Report ---
HPI - HPI Patient complains to provider of: r wrist pain Time Seen by Provider: 03/13/19 18:37 Onset: Yesterday Onset/Duration: Sudden Quality of pain: Achy Pain Level: 3 Context: Patient presents complaining of right wrist and hand pain. Patient states that her child was about to fall and she reached to grab him hitting her hand and wrist on a ride at [employer]. Patient is right-hand dominant. Associated Symptoms: Other - Right wrist and hand pain Exacerbated by: Movement Relieved by: Remaining still Similar symptoms previously: No Recently seen / treated by doctor: No - ROS ROS below otherwise negative: Yes Systems Reviewed and Negative: Yes All other systems reviewed and negative - CONSTITUTIONAL Constitutional: DENIES: Fever, Chills - REPRODUCTIVE LMP: 02/23/19 Reproductive: DENIES: : - MUSCULOSKELETAL Musculoskeletal: REPORTS: Extremity pain, Swelling - DERM Skin Color: Normal Skin Problems: None Past Medical History - General Information source: Patient - Social History Smoking Status: Current Every Day Smoker Chew tobacco use (# tins/day): No Frequency of alcohol use: None Drug Abuse: None Occupation: [employer] Lives with: Family Family History: Reviewed & Not Pertinent Patient has suicidal ideation: No Patient has homicidal ideation: No - Past Medical History Cardiac Medical History: Reports: Hx Hypertension Denies: Hx Coronary Artery Disease, Hx Heart Attack Pulmonary Medical History: Reports: Hx Asthma, Hx Bronchitis, Hx Pneumonia - hx Denies: Hx COPD Neurological Medical History: Denies: Hx Cerebrovascular Accident, Hx Seizures Endocrine Medical History: Reports: Hx Diabetes Mellitus Type 2 Renal/ Medical History: Denies: Hx Peritoneal Dialysis GI Medical History: Reports: Hx Gastroesophageal Reflux Disease Musculoskeletal Medical History: Reports Hx Arthritis, Reports Hx Musculoskeletal Deformity - Chronic back and neck pain, Reports Hx Musculoskeletal Trauma Psychiatric Medical History: Reports: Hx Anxiety Past Surgical History: Reports: Hx Section - 2005 & 2009, Hx Genitourinary Surgery - D&C. Denies: Hx Hysterectomy - Immunizations Immunizations up to date: Yes Hx Diphtheria, Pertussis, Tetanus Vaccination: Yes Hx Pneumococcal Vaccination: 07/15/10 Vertical Provider Document - CONSTITUTIONAL Agree With Documented VS: Yes Exam Limitations: No Limitations General Appearance: WD/WN, No Apparent Distress - INFECTION CONTROL TRAVEL OUTSIDE OF THE [place] IN LAST 30 DAYS: No - HEENT HEENT: Atraumatic, Normocephalic - NECK Neck: Normal Inspection - RESPIRATORY Respiratory: No Respiratory Distress - CARDIOVASCULAR Pulses: Normal: Radial - MUSCULOSKELETAL/EXTREMETIES Musculoskeletal/Extremeties: MAEW, FROM, Tender - Tenderness over distal ulna with 1+ edema, no deformity. Mild tenderness to dorsal aspect of right hand - NEURO Level of Consciousness: Awake, Alert, Appropriate Motor/Sensory: No Motor Deficit - DERM Integumentary: Warm Course - Vital Signs Vital signs: Temp Pulse Resp BP Pulse Ox 98.2 F 93 16 155/83 H 93 03/13/19 18:20 03/13/19 18:20 03/13/19 18:20 03/13/19 18:20 03/13/19 18:20 - Diagnostic Test Radiology reviewed: Image reviewed, Reports reviewed Procedures - Immobilization Right Wrist Pre-Proc Neuro Vasc Exam: Normal Immobilizer type: Cock-up Performed by: RN Post-Proc Neuro Vasc Exam: Normal Alignment checked and good: Yes Discharge - Discharge Clinical Impression: Right hand pain Right wrist sprain Qualifiers: Encounter type: initial encounter Qualified Code(s): S63.501A - Unspecified sprain of right wrist, initial encounter Condition: Stable Disposition: HOME, SELF-CARE Instructions: Acetaminophen, Ice & Elevation ([facility]), Wrist Sprain ([facility]) Additional Instructions: Return immediately for any new or worsening symptoms Followup with your primary care provider, call tomorrow to make a followup appointment Follow-up with orthopedics for any persistent pain or problems Wear splint for the next 4 to 5 days and then remove, if still having pain follow-up with orthopedics for further evaluation Forms: Smoking Cessation Education, Restricted Release, Return to Work Referrals: [facility] [Primary Care Provider] - Follow up as needed LESA ESTES DO [ACTIVE STAFF] - Follow up as needed
[2019-03-13 20:57] VITALS: BP 152/73
== END 2019-03-13 20:55 | disposition home or self-care (01) ==
LOC: ER 17:13
DX: S63.501A Unspecified sprain of right wrist, initial encounter (principal); W22.09XA Striking against other stationary object, initial encounter; Y92.511 Restaurant or cafe as the place of occurrence of the external cause; F17.200 Nicotine dependence, unspecified, uncomplicated; E11.9 Type 2 diabetes mellitus without complications
CPT/HCPCS: 73110; L3908; 99283

== ENCOUNTER 2019-06-14 11:21 | Emergency (ER) | payer SELFPAY ==
[2019-06-14 12:07] VITALS: BP 187/84
--- NOTE | 2019-06-14 12:14 | ER Document Report ---
HPI - HPI Time Seen by Provider: 06/14/19 12:07 Notes: Patient is a 38-year-old female who presents to the ED complaining of nasal congestion/discharge, intermittent throat irritation, dry nonproductive cough, fever, body ache 4 days. Patient states that she is still eating and drinking without difficulties, but does have a decreased p.o. intake. She is still urinating normally having normal bowel movements. Patient has been using some [id number] meds for symptoms. She has a PMH of DM and HTN. Patient requesting work note. Denies any current headache, neck pain, chest pain, palpitations, syncope, shortness of breath, wheeze, dyspnea, abdominal pain, nausea/vomiting/diarrhea, urinary retention, dysuria, hematuria, or rash. - ROS Systems Reviewed and Negative: Yes All other systems reviewed and negative - REPRODUCTIVE Reproductive: DENIES: : Past Medical History - Social History Smoking Status: Unknown if Ever Smoked Family History: Reviewed & Not Pertinent - Past Medical History Cardiac Medical History: Reports: Hx Hypertension Denies: Hx Coronary Artery Disease, Hx Heart Attack Pulmonary Medical History: Reports: Hx Asthma, Hx Bronchitis, Hx Pneumonia - hx Denies: Hx COPD Neurological Medical History: Denies: Hx Cerebrovascular Accident, Hx Seizures Endocrine Medical History: Reports: Hx Diabetes Mellitus Type 2 Renal/ Medical History: Denies: Hx Peritoneal Dialysis GI Medical History: Reports: Hx Gastroesophageal Reflux Disease Musculoskeletal Medical History: Reports Hx Arthritis, Reports Hx Musculoskeletal Deformity - Chronic back and neck pain, Reports Hx Musculoskeletal Trauma Psychiatric Medical History: Reports: Hx Anxiety Past Surgical History: Reports: Hx Section - 2004 & 2008, Hx Genitourinary Surgery - D&C. Denies: Hx Hysterectomy - Immunizations Immunizations up to date: Yes Hx Diphtheria, Pertussis, Tetanus Vaccination: Yes Hx Pneumococcal Vaccination: 07/15/10 Vertical Provider Document - CONSTITUTIONAL Agree With Documented VS: Yes Notes: PHYSICAL EXAMINATION: GENERAL: Well-appearing, well-nourished and in no acute distress. A&Ox4. Answers questions appropriately. Moves comfortably w/o notable distress HEAD: Atraumatic, normocephalic. EYES: Pupils equal round and reactive to light, extraocular movements intact, sclera anicteric, conjunctiva are normal. ENT: EAC clear b/l. TM's intact b/l without erythema, fluid, or perforation. Nares patent and with clear discharge. oropharynx no erythema without exudates. No tonsilar hypertrophy without erythema or exudate. No palatine shift. Uvula midline. No tongue protrusion. No drooling, hoarseness, or airway compromise. Moist mucous membranes. No sinus tenderness. NECK: Normal range of motion, supple without lymphadenopathy. No rigidity/meningismus. LUNGS: scant crackles b/l. No retractions HEART: Regular rate and rhythm without murmurs, rubs, gallops. ABDOMEN: Soft, nontender, nondistended abdomen. No guarding, no rebound. Normal bowel sounds present. No CVA tenderness bilaterally. NEUROLOGICAL: Normal speech, normal gait. PSYCH: Normal mood, normal affect. SKIN: Warm, Dry, normal turgor, no rashes or lesions noted. - INFECTION CONTROL TRAVEL OUTSIDE OF THE [place] IN LAST 30 DAYS: No Course - Re-evaluation Re-evalutation: 06/14/19 Patient is an afebrile, well-hydrated, 38-year-old female who presents to the ED with pneumonia. Vitals are acceptable. PE is otherwise unremarkable. See CXR. No other labs or imaging warranted at this time based on H&P. Patient has no significant cardiopulmonary or immunocompromised medical conditions. Patient is tolerating p.o. without any difficulties. Low suspicion for any meningitis, sepsis, peritonsillar/pharyngeal abscess, respiratory compromise, severe dehydration, pneumonia, or other emergent systemic condition at this time. Patient is aware this condition can change from initial presentation and she needs to monitor symptoms closely. Rx for levaquin. Conservative measures otherwise for symptoms. Recheck with your PCM in 3-5 days. Return to the ED with any worsening/concerning symptoms otherwise as reviewed in discharge. Patient is in agreement. - Vital Signs Vital signs: Temp Pulse Resp BP Pulse Ox 98.2 F 89 24 H 187/84 H 95 06/14/19 11:38 06/14/19 11:38 06/14/19 11:38 06/14/19 11:38 06/14/19 11:38 Discharge - Discharge Clinical Impression: Pneumonia Qualifiers: Pneumonia type: due to unspecified organism Laterality: bilateral Lung location: unspecified part of lung Qualified Code(s): J18.9 - Pneumonia, unspecified organism Condition: Stable Disposition: HOME, SELF-CARE Instructions: Upper Respiratory Illness ([facility]) Additional Instructions: Maintain adequate fluid intake tylenol/ibuprofen as needed alternating every 3 hours for fever/body ache over the counter cold medication as needed for symptoms Humidified air may help Wash your hands regularly Wear a mask when coughing F/u: with your PCM in 3-5 days for a recheck Return to the ED with any fever, altered mental status/behavior, chest pain, palpitations, syncope, headache, neck pain/stiffness, shortness of breath, chest pains, wheezing, drooling, trouble swallowing/breathing, abdominal pain, n/v/d, rash, or worsening/concerning symptoms otherwise. Prescriptions: Benzonatate [Tessalon Perle 100 mg Capsule] 100 mg PO Q8HP PRN #15 cap PRN Reason: Levofloxacin [Levaquin 750 mg Tablet] 750 mg PO DAILY #5 tablet Forms: Elevated Blood Pressure Referrals: [facility] [Primary Care Provider] - Follow up as needed
--- NOTE | 2019-06-14 12:50 | RADIOLOGY REPORT (SQ) ---
EXAM DESCRIPTION: CHEST 2 VIEWS COMPLETED DATE/TIME: 06/14/2019 12:41 pm REASON FOR STUDY: cough COMPARISON: 08/07/2017. EXAM PARAMETERS: NUMBER OF VIEWS: two views TECHNIQUE: Digital Frontal and Lateral radiographic views of the chest acquired. RADIATION DOSE: NA LIMITATIONS: none FINDINGS: LUNGS AND PLEURA: Hazy airspace disease in both lungs No pleural effusion. MEDIASTINUM AND HILAR STRUCTURES: No masses or contour abnormalities. HEART AND VASCULAR STRUCTURES: Heart normal size. No evidence for failure. BONES: No acute findings. HARDWARE: None in the chest. OTHER: No other significant finding. IMPRESSION: HAZY AIRSPACE DISEASE IN BOTH LUNGS SUSPICIOUS FOR PNEUMONIA. TECHNICAL DOCUMENTATION: JOB ID: [id number] [employer]- All Rights Reserved Reading location - IP/workstation name: [email or web address]
== END 2019-06-14 13:00 | disposition home or self-care (01) ==
LOC: ER 11:21
DX: J18.9 Pneumonia, unspecified organism (principal); R09.81 Nasal congestion; R50.9 Fever, unspecified; I10 Essential (primary) hypertension; E11.9 Type 2 diabetes mellitus without complications
CPT/HCPCS: 71046; 99283

== ENCOUNTER 2019-08-22 02:53 | Emergency (ER) | payer SELFPAY ==
[2019-08-22 04:11] LABS: A TYPE INFLUENZA AG NEGATIVE (NEGATIVE); B INFLUENZA AG NEGATIVE (NEGATIVE)
--- NOTE | 2019-08-22 05:56 | ER Document Report ---
ED General - General Chief Complaint: Shortness Of Breath Stated Complaint: BODY ACHES/CHILLS Time Seen by Provider: 08/22/19 05:54 TRAVEL OUTSIDE OF THE [place] IN LAST 30 DAYS: No - HPI Patient complains to provider of: body aches Notes: Well-appearing 38-year-old female presents with diffuse myalgias dry nonproductive cough for 2 or 3 days. Concerned about the flu. Does not know if she had a fever or not. No chronic medical history. Patient is also endorsing a painful lump on her rectum "where I poop at". Not sure was a hemorrhoid or an abscess. - Related Data Allergies/Adverse Reactions: amoxicillin [Amoxicillin] Allergy (Verified 08/22/19 03:15) ivory soap Allergy (Severe, Uncoded 08/22/19 03:15) Past Medical History - Social History Smoking Status: Current Some Day Smoker Frequency of alcohol use: Occasional Drug Abuse: Bath salts Family History: Reviewed & Not Pertinent Patient has suicidal ideation: No Patient has homicidal ideation: No - Past Medical History Cardiac Medical History: Reports: Hx Hypertension Denies: Hx Coronary Artery Disease, Hx Heart Attack Pulmonary Medical History: Reports: Hx Asthma, Hx Bronchitis, Hx Pneumonia - hx Denies: Hx COPD Neurological Medical History: Denies: Hx Cerebrovascular Accident, Hx Seizures Endocrine Medical History: Reports: Hx Diabetes Mellitus Type 2 Renal/ Medical History: Denies: Hx Peritoneal Dialysis GI Medical History: Reports: Hx Gastroesophageal Reflux Disease Musculoskeletal Medical History: Reports Hx Arthritis, Reports Hx Musculoskeletal Deformity - Chronic back and neck pain, Reports Hx Musculoskeletal Trauma Psychiatric Medical History: Reports: Hx Anxiety Past Surgical History: Reports: Hx Section - 2004 & 2008, Hx Genitourinary Surgery - D&C. Denies: Hx Hysterectomy - Immunizations Immunizations up to date: Yes Hx Diphtheria, Pertussis, Tetanus Vaccination: Yes Hx Pneumococcal Vaccination: 07/15/10 Review of Systems - Review of Systems Notes: REVIEW OF SYSTEMS: CONSTITUTIONAL: -fevers, -chills EENT: -eye pain, -difficulty swallowing, -nasal congestion CARDIOVASCULAR: -chest pain, -syncope. RESPIRATORY: positive cough, -SOB GASTROINTESTINAL: -abdominal pain, -nausea, -vomiting, -diarrhea GENITOURINARY: -dysuria, -hematuria MUSCULOSKELETAL: -back pain, -neck pain SKIN: -rash or skin lesions. HEMATOLOGIC: -easy bruising or bleeding. LYMPHATIC: -swollen, enlarged glands. NEUROLOGICAL: -altered mental status or loss of consciousness, -headache, - neurologic symptoms PSYCHIATRIC: -anxiety, -depression. ALL OTHER SYSTEMS REVIEWED AND NEGATIVE. Physical Exam - Vital signs Vitals: Temp Pulse Resp BP Pulse Ox 98.4 F 93 24 H 194/71 H 96 08/22/19 03:06 08/22/19 03:06 08/22/19 03:06 08/22/19 03:06 08/22/19 03:06 - Notes Notes: PHYSICAL EXAMINATION: GENERAL: Well-appearing, well-nourished and in no acute distress. HEAD: Atraumatic, normocephalic. EYES: Pupils equal round and reactive to light, extraocular movements intact, sclera anicteric, conjunctiva are normal. ENT: nares patent, oropharynx clear without exudates. Moist mucous membranes. NECK: Normal range of motion, supple without lymphadenopathy LUNGS: Breath sounds clear to auscultation bilaterally and equal. No wheezes rales or rhonchi. HEART: Regular rate and rhythm without murmurs ABDOMEN: Soft, nontender, normoactive bowel sounds. No guarding, no rebound. No masses appreciated. EXTREMITIES: Normal range of motion, no pitting or edema. No cyanosis. NEUROLOGICAL: Cranial nerves grossly intact. Normal speech, normal gait. Normal sensory and motor exams. PSYCH: Normal mood, normal affect. SKIN: Warm, Dry, normal turgor, no rashes or lesions noted. Course - Re-evaluation Re-evalutation: 08/22/19 06:17 Well-appearing 38-year-old female presents with signs and symptoms of viral syndrome. Flu swab negative strep negative afebrile no acute distress. Rectal exam finds external hemorrhoid nonthrombosed tender to patient no bleeding. Will give analgesia department, steroid suppositories. Prescription for more of the same follow-up PCP and colon rectal surgery if worsening. Return if any changes. - Vital Signs Vital signs: Temp Pulse Resp BP Pulse Ox 98.4 F 93 24 H 132/58 H 96 08/22/19 03:06 08/22/19 03:06 08/22/19 03:06 08/22/19 05:27 08/22/19 03:06 Discharge - Discharge Clinical Impression: Viral syndrome, Acute hemorrhoid Condition: Stable Disposition: HOME, SELF-CARE Prescriptions: Oxycodone HCl [Oxycontin Ir 5 Mg Tablet] 1 - 2 mg PO Q4H PRN #15 tablet PRN Reason: For Pain Hydrocortisone Acetate [Proctocort] 30 mg RC DAILY #14 supp.rect
[2019-08-22] MEDS ORDERED: HYDROMORPHONE HCL INJ/PF 2 MG/ML AMPULE IM ONE (06:13)
[2019-08-22 06:33] VITALS: BP 140/78
--- NOTE | 2019-08-22 12:04 | EKG REPORT ---
SEVERITY:- ABNORMAL ECG - SINUS RHYTHM ABNORMAL T, CONSIDER ISCHEMIA, LATERAL LEADS : Confirmed by: Eliceo Borden 22-Aug-2019 12:03:28
== END 2019-08-22 06:52 | disposition home or self-care (01) ==
LOC: ER 02:53
DX: B34.9 Viral infection, unspecified (principal); K64.4 Residual hemorrhoidal skin tags; M79.10 Myalgia, unspecified site; R05 Cough; F17.200 Nicotine dependence, unspecified, uncomplicated; F19.90 Other psychoactive substance use, unspecified, uncomplicated; I10 Essential (primary) hypertension; J45.909 Unspecified asthma, uncomplicated; E11.9 Type 2 diabetes mellitus without complications; Z88.0 Allergy status to penicillin; Z88.3 Allergy status to other anti-infective agents
CPT/HCPCS: 93005; 99283; 96374; 87070; 87880; 87804; 93010; J1170